=== PATIENT | female | born 1975 | race Caucasian/White ===

== ENCOUNTER 2017-02-14 02:31 | Emergency (ER) | payer OTHER ==
[2017-02-14] MEDS ORDERED: LORazepam 0.5 MG TABLET PO STA (02:49)
[2017-02-14] MEDS ORDERED: LORazepam 0.5 MG TABLET ONE (02:54)
== END 2017-02-14 03:52 | disposition home or self-care (01) ==
DX: F43.0 Acute stress reaction (principal); F43.29 Adjustment disorder with other symptoms; F32.9 Major depressive disorder, single episode, unspecified; F41.9 Anxiety disorder, unspecified
CPT/HCPCS: 99283; A9270

== ENCOUNTER 2017-12-11 12:22 | Emergency (ER) | payer OTHER ==
--- NOTE | 2017-12-11 13:19 | XRAY Report ---
EXAM: CHEST RADIOGRAPHY EXAM DATE: 12/11/2017 12:40 PM. CLINICAL HISTORY: Cough. COMPARISON: 03/04/2010. TECHNIQUE: 2 views. FINDINGS: Lungs/Pleura: No focal consolidation. No pleural effusion. No pneumothorax. Normal volumes. Mediastinum: Heart and mediastinal contours are normal. Other: None. IMPRESSION: No acute cardiopulmonary abnormality. [facility] Referring Provider Line: [phone] SITE ID: [id number]
--- NOTE | 2017-12-11 13:58 | ED Physician Documentation ---
PD HPI URI - Stated complaint Stated Complaint: COUGH - Chief complaint Chief Complaint: Resp - History obtained from History obtained from: Patient - History of Present Illness Timing - onset: How many weeks ago (over a week of coughing to point of vomiting. Repetitive cough. Has had worsening of it and now productive as well.) Timing duration: Weeks (1) Timing details: Abrupt onset, Still present Associated symptoms: Productive cough, Chest pain (with coughing), Dyspnea. No : Fever, Hemoptysis, Bilateral edema Contributing factors: Other (works as [employer] so around sick folk.). No: Sick contact, Travel, Immunocompromised Improves by: No: Medication (OTC cough med not working.) Similar symptoms before: Has not had sx before Recently seen: Not recently seen Review of Systems Constitutional: denies: Fever, Chills Nose: reports: Congestion Throat: denies: Sore throat Cardiac: reports: Chest pain / pressure Respiratory: reports: Dyspnea, Cough, Wheezing GI: denies: Nausea, Vomiting (not of its own, but with coughing hard.), Diarrhea PD PAST MEDICAL HISTORY - Past Medical History Past Medical History: Yes Cardiovascular: None Respiratory: None Neuro: None Psych: Depression, Anxiety - Past Surgical History Past Surgical History: No - Present Medications Home Medications: Ambulatory Orders Medication Instructions Recorded Confirmed Cetirizine [ZyrTEC] 10 mg PO DAILY 02/14/17 02/14/17 Fluoxetine HCl [Prozac] 20 mg PO DAILY 02/14/17 02/14/17 Lorazepam [Ativan] 1 mg PO Q6H PRN #5 tablet 02/14/17 lamoTRIgine [LaMICtal] 100 mg PO DAILY 02/14/17 02/14/17 Azithromycin [Zithromax] 250 mg PO DAILY #6 tablet 12/11/17 Dexamethasone [Decadron] 4 mg PO DAILY #7 tablet 12/11/17 HYDROcod/ACETAM 5/325 [[place] 5/325] 1 tab PO Q6H PRN #15 tablet 12/11/17 guaiFENesin [Mucinex] 600 mg PO BID #20 tablet 12/11/17 - Allergies Allergies/Adverse Reactions: Allergies Allergy/AdvReac Type Severity Reaction Status Date / Time No Known Drug Allergies Allergy Verified 02/14/17 02:39 - Social History Does the pt smoke?: No Smoking Status: Never smoker PD ED PE NORMAL - Vitals Vital signs reviewed: Yes - General General: Alert and oriented X 3, Well developed/nourished - HEENT HEENT: Ears normal, Pharynx benign - Neck Neck: Supple, no meningeal sign, No adenopathy - Cardiac Cardiac: RRR, No murmur - Respiratory Respiratory: Clear bilaterally - Abdomen Abdomen: Soft, Non tender - Back Back: No CVA TTP Results - Vitals Vitals: Oxygen O2 Source Room air - Rads (name of study) chest Radiology: Prelim report reviewed, EMP read contemporaneously (no pneumonia) PD MEDICAL DECISION MAKING - ED course Complexity details: reviewed results, considered differential (prolonged cough with now purulent and worsening. Consider secondary bacterial. Also has component that sounds pertussis-like.), d/w patient Departure - Departure Disposition: 01 Home, Self Care Clinical Impression: Bronchitis Upper respiratory infection Qualifiers: URI type: unspecified URI Qualified Code(s): J06.9 - Acute upper respiratory infection, unspecified Condition: Stable Record reviewed to determine appropriate education?: Yes Instructions: ED Upper Resp Infec Abx Tx Follow-Up: JASPREET LANGE [Primary Care Provider] - Prescriptions: Azithromycin [Zithromax] 250 mg PO DAILY #6 tablet Dexamethasone [Decadron] 4 mg PO DAILY #7 tablet guaiFENesin [Mucinex] 600 mg PO BID #20 tablet HYDROcod/ACETAM 5/325 [[place] 5/325] 1 tab PO Q6H PRN #15 tablet PRN Reason: Pain Comments: Continue your albuterol inhaler 2 puffs 4 times a day for the next 7-10 days and then back to as needed. Dexamethasone steroid for inflammation will reduce congestion and irritation in the sinuses and chest. Use it 2 tablets daily for the first 2 days and then 1 daily after that. Use hydrocodone if needed for pain and that will help reduce coughing as well. Mucinex to decrease congestion. Recheck if not improving over the next few days. Discharge Date/Time: 12/11/17 14:33
[2017-12-11 14:37] VITALS: BP 126/88
== END 2017-12-11 14:33 | disposition home or self-care (01) ==
LOC: ED 12:22
DX: J40 Bronchitis, not specified as acute or chronic (principal); J06.9 Acute upper respiratory infection, unspecified
CPT/HCPCS: 71046; 99283

== ENCOUNTER 2021-06-02 07:48 | Outpatient (CLI) | payer OTHER ==
--- NOTE | 2021-06-02 16:52 | XRAY Report ---
PROCEDURE: Knee 4 View RT INDICATIONS: R KNEE PX TECHNIQUE: 4 views of the right knee(s) were acquired. COMPARISON: None. FINDINGS: Bones: No fractures or dislocations. No suspicious bony lesions. Mild medial and patellofemoral com partment right knee osteoarthritis. Soft tissues: Trace suprapatellar joint effusion No suspicious soft tissue calcifications. IMPRESSION: 1. Mild right knee medial and patellofemoral compartment arthritis. 2. Trace nonspecific joint effusion. Reviewed by: Janee Cantrell MD, PhD on 06/02/2021 4:51 PM PDT Approved by: Janee Cantrell MD, PhD on 06/02/2021 4:51 PM PDT Station ID: [id number]
== END 2021-06-02 07:49 | disposition home or self-care (01) ==
LOC: DI.N 07:48
PROVIDERS: ATTEND Orthopaedic Surgery
DX: M17.11 Unilateral primary osteoarthritis, right knee (principal); M25.461 Effusion, right knee

== ENCOUNTER 2021-06-30 14:27 | Outpatient (CLI) | payer OTHER ==
--- NOTE | 2021-07-07 07:27 | Mammography Report ---
BILATERAL DIGITAL SCREENING MAMMOGRAM 3D/2D: 06/30/2021 CLINICAL: Routine screening. Comparison is made to exams dated: 02/21/2018 mammogram, 02/26/2016 mammogram, and 07/15/2004 mammogram - [facility]. The tissue of both breasts is heterogeneously dense. This may lower the sens itivity of mammography. No significant masses, calcifications, or other findings are seen in either breast. There has been no significant interval change. IMPRESSION: NEGATIVE There is no mammographic evidence of malignancy. A 1 year screening mammogram is recommended. This exam was interpreted at Station ID: [id number]. NOTE: For mammograms, a report in lay terms will be sent to the patient. Approximately 15% of breast malignancies will not be visualized mammographically. In the management of a palpable breast mass, a negative mammogram must not discourage biopsy of a clinically suspicious lesion. Electronically Signed By: Manfred Clancy M.D., jr/eloyrad:07/03/2021 08:46:56 ACR BI-RADS Category 1: Negative 3341F PARENCHYMAL PATTERN: (D) - The breast(s) demonstrate(s) heterogeneously dense fibroglandular [place]. BI-RADS CATEGORY: (1) - 1 RECOMMENDATION: (ANNUAL) - Recommend routine annual screening mammography. [id number] 1 year screening LATERALITY: (B)
== END 2021-06-30 14:28 | disposition home or self-care (01) ==
LOC: DI.N 14:27
DX: Z12.31 Encounter for screening mammogram for malignant neoplasm of breast (principal)

== ENCOUNTER 2021-08-05 07:08 | Outpatient (CLI) | payer OTHER ==
--- NOTE | 2021-08-05 11:07 | MRI Report ---
PROCEDURE: Knee LT W/O INDICATIONS: BILATERAL SYNOVIAL CYSTS TECHNIQUE: Noncontrast sagittal PD fast spin echo and T2 fast spin echo with fat saturation, sagittal 3-D gradie nt sequence with fat saturation; coronal T1 spin echo and PD fast spin echo with fat saturation, and axial PD fast spin echo with fat saturation through the knee. COMPARISON: None. Findings: Medial meniscus: No surface communication/tear. Lateral meniscus: No surface communication/tear. LIGAMENTS/TENDONS: Patellar tendon: Intact. Distal quadriceps tendon: Intact. Hoffa's fat pad: No evidence of fibrosis or mass. PCL: Intact. ACL: Intact. Lateral collateral ligament complex: No significant abnormality. Posterolateral corner: No significant abnormality. Medial collateral ligament: Periligamentous edema, compatible grade 1/2 injury.. MARROW: Small focus of T2 hyperintensity/T1 hypointense signal in the lateral femoral condyle, gwen tible with contusion/subchondral injury. Lateral subluxation of the patella, compatible with tilt. CARTILAGE: Small focal defect of the patella cartilage overlying the lateral femoral condyle. Signal heterogeneity in thinning of the lateral patellofemoral hyaline cartilage. Muscles: No significant edema or atrophy. Joint effusion/Diaz's cyst: Small joint effusion. A 5 x 1.9 x 2.1 cm T2 hyperintense lesion is seen in the popliteal fossa, which may reflect a Diaz's cyst. Subcutaneous soft tissues: No significant edema. IMPRESSION: 1. No evidence of internal impingement. 2. Lateral patellar tilt with osteochondral injury of the lateral femoral condyle. 3. Small joint effusion. 4. Diaz's cyst as detailed above. 5. Grade 1/2 MCL injury. Reviewed by: Giovanni Gomez MD on 08/05/2021 11:06 AM PDT Approved by: Giovanni Gomez MD on 08/05/2021 11:06 AM PDT Station ID: [id number]
--- NOTE | 2021-08-05 11:19 | MRI Report ---
PROCEDURE: Knee RT W/O INDICATIONS: BILATERAL SYNOVIAL CYSTS TECHNIQUE: Noncontrast sagittal PD fast spin echo and T2 fast spin echo with fat saturation, sagittal 3-D gradie nt sequence with fat saturation; coronal T1 spin echo and PD fast spin echo with fat saturation, and axial PD fast spin echo with fat saturation through the knee. COMPARISON: Reference is made to the right knee radiograph dated June 02, 2021. Findings: Medial meniscus: Deficiency of the posterior horn with extrusion, compatible with tear. Lateral meniscus: Intrasubstance signal in the anterior horn, compatible with degeneration. LIGAMENTS/TENDONS: Patellar tendon: Intact. Distal quadriceps tendon: Intact. Hoffa's fat pad: No evidence of fibrosis or mass. PCL: Intact. ACL: Intrasubstance signal, compatible with partial tear. Lateral collateral ligament complex: No significant abnormality. Posterolateral corner: No significant abnormality. Medial collateral ligament: No significant abnormality.. MARROW: Patchy T2 hyperintense signal in the anterior aspect of the medial tibial plateau, compatibl e with contusion. CARTILAGE: Deficiency of the hilum cartilage overlying the medial compartment with T1 hypointense sig nal, compatible osteochondral injury/degenerative change. Signal heterogeneity and fraying of the lateral patellar facet cartilage Muscles: No significant edema or atrophy. Joint effusion/Diaz's cyst: Moderate joint effusion. A complex T2 hyperintense lesion is seen in the popliteal fossa, measuring 5.8 x 3 x 6 cm, which may reflect a complex Diaz's cyst or synovial mass . Subcutaneous soft tissues: T2 hyperintense signal along the fascial plane of the medial gastrocnemius . IMPRESSION: 1. ACL intrasubstance signal, compatible partial tear. 2. Contusion in the anterior aspect of the medial tibial plateau. 3. Osteochondral injury/degeneration of the medial compartment hyaline cartilage and subchondral bone . 4. Moderate joint effusion. 5. Complex cystic appearing mass in the popliteal fossa, which may reflect a complex Diaz's cyst. Ho wever, a synovial mass cannot be excluded. Consider sonographic imaging for further evaluation. 6. Deficiency of the medial meniscus with extrusion, compatible with tear. Reviewed by: Giovanni Gomez MD on 08/05/2021 11:17 AM PDT Approved by: Giovanni Gomez MD on 08/05/2021 11:17 AM PDT Station ID: [id number]
== END 2021-08-05 07:09 | disposition home or self-care (01) ==
LOC: DI 07:08
PROVIDERS: ATTEND Student in an Organized Health Care Education/Training Program
DX: M25.861 Other specified joint disorders, right knee (principal); M71.22 Synovial cyst of popliteal space [Baker], left knee; M25.461 Effusion, right knee; M25.462 Effusion, left knee; S83.511A Sprain of anterior cruciate ligament of right knee, initial encounter; S83.241A Other tear of medial meniscus, current injury, right knee, initial encounter; S83.412A Sprain of medial collateral ligament of left knee, initial encounter

== ENCOUNTER 2021-11-11 00:11 | Outpatient (CLI) | payer OTHER | END 2021-11-11 00:12 | disposition EMS.NT | LOC: EMS 00:11 | DX: R06.02 Shortness of breath (principal); F41.9 Anxiety disorder, unspecified; R06.4 Hyperventilation ==

== ENCOUNTER 2022-01-03 22:02 | Emergency (ER) | payer OTHER ==
[2022-01-03 22:16] VITALS: BP 155/91
[2022-01-03] MEDS ORDERED: PROPARACAINE 0.5% OPHTH DROPS 15 ML LEFTEYE STA (22:46)
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
== END 2022-01-03 23:47 | disposition home or self-care (01) ==
LOC: ED 22:02
DX: H57.89 Other specified disorders of eye and adnexa (principal); Z73.3 Stress, not elsewhere classified
CPT/HCPCS: 93005; 99283; 99284; J3490

== ENCOUNTER 2022-01-18 14:58 | Outpatient (CLI) | payer OTHER ==
--- NOTE | 2022-01-19 12:10 | MRI Report ---
PROCEDURE: Angio Brain W/O (MRA) INDICATIONS: PULSATILE TINNITUS TECHNIQUE: Noncontrast axial 3-D [id number] MR angiogram, with 3-dimensional maximum intensity projection (M IP) reformats of the internal carotid arteries and posterior circulation then performed. COMPARISON: None. FINDINGS: Image quality: Excellent. Anterior circulation: Intracranial internal carotid arteries demonstrate normal size and intralumina l flow signal. The flow within the paired anterior cerebral arteries is normal and symmetric. The f low within the middle cerebral arteries is normal and symmetric. The anterior communicating artery i s seen. No stenoses, occlusions, or aneurysms. Posterior circulation: Visualized portions of the vertebral arteries demonstrate normal caliber, and join to form a normal appearing basilar artery. The flow within the posterior cerebral arteries is normal and symmetric. No stenoses, occlusions, or aneurysms. IMPRESSION: Normal MRA of the brain. Reviewed by: Manfred Clancy MD on 01/19/2022 12:08 PM PDT Approved by: Manfred Clancy MD on 01/19/2022 12:08 PM PDT Station ID: [id number]
== END 2022-01-18 14:59 | disposition home or self-care (01) ==
LOC: DI 14:58
PROVIDERS: ATTEND Student in an Organized Health Care Education/Training Program
DX: H93.A2 Pulsatile tinnitus, left ear (principal)